=== PATIENT | female | born 1980 | race Caucasian/White ===

== ENCOUNTER 2017-09-21 19:03 | Emergency (ER) | payer SELFPAY ==
--- NOTE | 2017-09-21 20:17 | ED Physician Documentation ---
Low Back Pain - HISTORIAN Historian: patient - HPI Chief Complaint: Low Back Pain/ Injury History: history of chronic pain:, back pain Onset: days ago (3 days) Duration: continues in ED, worse Recent Injury: No Severity: severe Further Comments: yes (37 year old female patient presents with complaint of left hip and low back pain. Patient reports long history of back pain from fractures in 2007 and 2014.) - ROS CONST: no problems CVS/RESP: none EYES/ENT: none MS/SKIN/LYMPH: back pain Neuro/Psych: none GI/: denies: abdominal pain, black stools - PAST HX Past History: back pain Surgeries/Procedures: hysterectomy, BTL, other (mastectomy) Allergies/Adverse Reactions: Allergies Allergy/AdvReac Type Severity Reaction Status Date / Time aspirin [From Percodan] Allergy Verified 09/21/17 21:18 carisoprodol [From Soma] Allergy Verified 09/21/17 21:18 codeine [Codeine] Allergy Verified 09/21/17 21:18 hydrocodone Allergy Verified 09/21/17 21:18 morphine Allergy Verified 09/21/17 21:18 oxycodone HCl [From Percocet] Allergy Verified 09/21/17 21:18 oxycodone terephthalate Allergy Verified 09/21/17 21:18 [From Percodan] propoxyphene HCl Allergy Verified 09/21/17 21:18 [From Darvon] propoxyphene napsylate Allergy Verified 09/21/17 21:18 [From Darvocet-N 100] Home Medications: Ambulatory Orders Medication Instructions Recorded Multivitamin [Multi-Day Vitamins] 1 each PO D 01/16/13 - SOCIAL HX Smoking History: cigarettes - FAMILY HX Family History: none - VITAL SIGNS Vital Signs: Vital Signs Temp Pulse Resp BP Pulse Ox 97.8 F 74 16 105/63 98 09/21/17 19:04 09/21/17 21:46 09/21/17 21:46 09/21/17 21:46 09/21/17 21:46 - REVIEWED ASSESSMENTS Nursing Assessment Reviewed: Yes Vitals Reviewed: Yes ED Results Lab/Radiology - Orders Orders: ED Orders Category Date Time Status Ketorolac Tromethamine [Toradol] Med 09/21/17 20:15 Discontinued 60 mg IM NOW ONE Orphenadrine Citrate [Norflex] Med 09/21/17 20:15 Discontinued 60 mg IM NOW ONE Low Back Pain/Injury - Physical Exam General Appearance: mild distress EENT: eye inspection normal, ENT inspection normal, pharynx normal, no signs of dehydration, KAYCEE, no nystagmus, TM's nml Resp/CVS: chest non-tender, breath sounds nml, reg. rate & rhythm Back: non-tender, muscle spasm, other (tenderness left hip and paraspinous muscles) Neuro/Psych: oriented x3, motor nml, sensation nml, mood/affect nml Skin: normal color, warm/dry, NR, INT, PAL, DR Extremities: non-tender, normal range of motion, no evidence of injury, no edema , J, HISTORY DEPARTMENT CHAIR Discharge Clincal Impression: Low back pain Qualifiers: Chronicity: acute Back pain laterality: left Sciatica presence: with sciatica Sciatica laterality: sciatica of left side Qualified Code(s): M54.42 - Lumbago with sciatica, left side Referrals: Yanira Fitch PROSTHETIC LAB TECHNICIAN [Primary Care Provider] - 2 Days Additional Instructions: Ice Rest Elevation If you are unable to bear weight and continuing to have significant pain on day 3-4; see your PCP for re-evaluation and additional xrays. You may use Tylenol every 4hour as needed for pain. Limit your dose to less than 4 G per day. Do not take ibuprofen, aleve, naproxen or any other NSAID while you are on toradol. You may want to try massage, over the counter lidocaine patches, biofreeze, iva cisse or aspercream . Condition: Stable Disposition: 01 HOME, SELF-CARE Decision to Admit: NO Decision Time: 20:15
[2017-09-21] MEDS: ORPHENADRINE CITRATE 60 MG/2ML IM ONE (20:23)
[2017-09-21] MEDS: KETOROLAC TROMETHAMINE 60 MG/2 ML VIAL IM ONE (20:23)
[2017-09-21 21:51] VITALS: BP 105/63
== END 2017-09-21 20:35 | disposition home or self-care (01) ==
LOC: ED 19:03
DX: M25.442 Effusion, left hand (principal)
CPT/HCPCS: J1885; J2360; 96372; 99283